=== PATIENT | male | born 1940 | race Caucasian/White ===

== ENCOUNTER 2017-09-20 23:44 | Emergency (ER) | payer MEDICARE, OTHER, SELFPAY | END 2017-09-21 03:23 | disposition still patient (30) | PROVIDERS: Emergency Provider Emergency Medicine; Visit Provider Emergency Medicine | DX: S72.001A Fracture of unspecified part of neck of right femur, initial encounter for closed fracture (principal); N39.0 Urinary tract infection, site not specified; M25.511 Pain in right shoulder; I10 Essential (primary) hypertension; Z86.79 Personal history of other diseases of the circulatory system; Y04.8XXA Assault by other bodily force, initial encounter | CPT/HCPCS: 71010; 73030; 73502; 80053; 81001; 85025; 87086; 87088; 87186; 93005; 93041; 96365; 96375; 99285 ==

== ENCOUNTER 2021-03-02 20:57 | Emergency (ER) | payer MEDICARE, OTHER, SELFPAY ==
[2021-03-02] VITALS (13 sets, daily range): BP systolic 122–141; BP diastolic 60–69; PULSE 71–87; RESP 17–20; TEMP 37.1; O2SAT 89–98; BMI 31.3; BMI 37.5
--- NOTE | 2021-03-02 21:12 | CT_ITS ---
PROCEDURE INFORMATION: Exam: CT Abdomen And Pelvis With Contrast Exam date and time: 03/02/2021 9:12 PM Age: 80 years old Clinical indication: Nausea and vomiting; Abdominal pain; Localized; Right upper quadrant (ruq); Patient HX: Ruq pain since this morning, with n/v; Additional info: Abd pain TECHNIQUE: Imaging protocol: Computed tomography of the abdomen and pelvis with contrast. Radiation optimization: All CT scans at this facility use at least one of these dose optimization techniques: automated exposure control; mA and/or kV adjustment per patient size (includes targeted exams where dose is matched to clinical indication); or iterative reconstruction. Contrast material: ISOVUE; Contrast volume: 75 ml; Contrast route: IV; COMPARISON: CR [id number] HIP RT 2-3V W/PELVIS IF PERFOR 09/21/2017 12:49 AM FINDINGS: Lungs: Mild bibasilar atelectasis or scarring. Liver: Normal. Gallbladder and bile ducts: Cholelithiasis, with enlarged gallbladder, minimal gallbladder wall thickening and mild pericholecystic fat stranding and fluid, compatible with acute cholecystitis. No biliary dilation. Pancreas: Normal. Spleen: Normal. Adrenal glands: Normal. No mass. Kidneys and ureters: Normal. Stomach and bowel: Mild gas and fluid distention of the stomach, without obstruction. Several loops of borderline dilated, gas and fluid-filled small bowel within the right lower quadrant, without definite focal transition to normal caliber small bowel identified. Appendix: Appendix normal. Intraperitoneal space: Unremarkable. No free air. No significant fluid collection. 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 Atherosclerotic disease of the abdominal aorta and iliac arteries. Lymph nodes: Unremarkable. No enlarged lymph nodes. Urinary bladder: Unremarkable as visualized. Reproductive: Unremarkable as visualized. Bones/joints: Right hip arthroplasty, without acute complications. Multilevel thoracolumbar spine degenerative disc disease. Soft tissues: Small fat containing left inguinal hernia, without acute complications. IMPRESSION: 1. Cholelithiasis, with enlarged gallbladder, minimal gallbladder wall thickening and mild pericholecystic fat stranding and fluid, compatible with acute cholecystitis. No biliary dilation. 2. Several loops of borderline dilated, gas and fluid-filled small bowel within the right lower quadrant, without definite focal transition to normal caliber small bowel identified. Findings may represent partial small bowel obstruction.
[2021-03-02 21:17] LABS: Basophils # 0.1 K/mm3 (0-0.2); Basophils % 0.2 % (0.1-2.0); Eosinophils # 0.2 K/mm3 (0.0-0.4); Eosinophils % 0.7 % (0.1-12.0); Hematocrit 42.5 % (42.0-52.0); Lymphocytes # 0.9 K/mm3 (0.7-4.5); Lymphocytes % 3.5 % (10-50); Mean Corpuscular HGB Conc 32.9 g/dL (31.8-35.4); Mean Corpuscular Hemoglobin 25.4 pg (27.0-31.2); Mean Corpuscular Volume 77.2 fl (80-94); Mean Platelet Volume 7.4 fl (7.4-10.4); Monocytes # 1.5 K/mm3 (0.1-1.0); Monocytes % 6.2 % (1.7-9.3); Neutrophils # 22.1 K/mm3 (1.8-7.8); Neutrophils % 89.4 % (37.0-80.0); Platelet Count 482 K/mm3 (142-424); Red Blood Count 5.51 M/mm3 (4.60-6.20); Red Cell Distribution Width 16.8 % (11.5-17.5); White Blood Count 24.7 K/mm3 (4.8-10.8)
[2021-03-02 21:21] LABS: Chloride 100 mmol/L (98-107); MANUAL DIFFERENTIAL MANUAL DIFFERENTIAL (MANUAL DIFF); Potassium 3.7 mmoL/L (3.5-5.1); Sodium 144 mmol/L (136-145)
[2021-03-02 21:23] LABS: Microscopic, Urine URINE MICROSCOPIC (MICROSCOPIC)
[2021-03-02 21:24] LABS: Alanine Aminotransferase 36 U/L (12-78); Albumin Level 4.5 g/dl (3.5-5.0); Albumin/Globulin Ratio 1.5 (1.1-1.8); Alkaline Phosphatase 117 U/L (38-126); Amylase 39 U/L (30-110); Anion Gap 15.7 mEq/L (5-15); Aspartate Amino Transferase 42 U/L (17-59); Bilirubin,Total 1.2 mg/dl (0.2-1.3); Blood Urea Nitrogen 22 mg/dl (9-20); Calcium 9.9 mg/dl (8.4-10.2); Carbon Dioxide 32 mmol/L (22.0-30.0); Creatinine Clearance Estimated 85 mL/min (50-200); Estimated Glomerular Filt Rate 65 ml/min (>60); GFR (African American) 78 ML/MIN (>60); Globulin 3.1 g/dL (1.3-3.2); Glucose 167 mg/dl (74-100); Lipase 16 U/L (23-300); Total Protein,Serum 7.6 g/dl (6.3-8.2)
[2021-03-02 21:24] LABS: Appearance,Urine CLEAR (Clear); Blood, Urine 3+ (Negative); Color,Urine YELLOW (Yellow); Glucose,Urine (UA) Negative (Negative); Ketones,Urine TRACE (Negative); Leukocyte Esterase,Urine TRACE (Negative); Nitrate,Urine POSITIVE (Negative); PH,Urine 6.5 (5.0-8.5); Protein,Urine 3+ (Negative); Specific Gravity, Urine >= 1.030 (1.005-1.030)
[2021-03-02 21:36] LABS: Barbiturates Screen,Urine Negative ng/ml (<200)
[2021-03-02 21:37] LABS: Benzodiazepines Screen,Urine Negative ng/ml (<200)
[2021-03-02 21:38] LABS: Troponin I 0.01 ng/ml (0.00-0.034)
[2021-03-02 21:38] LABS: Bilirubin,Urine Negative (Negative); Cocaine Screen,Urine Negative ng/ml (<300)
[2021-03-02 21:39] LABS: Methadone Screen,Urine Negative ng/ml (<300); Opiate Screen,Urine Negative ng/ml (<300); RBC,Urine 20-50 #/hpf (0-3)
[2021-03-02 21:40] LABS: Bacteria,Urine 3+ /lpf; Mucus,Urine 2+ /lpf; Phencyclidine Screen,Urine Negative ng/ml (<25)
[2021-03-02 21:45] LABS: Lymphocytes % 5 % (10-50); Microcytosis 1+; Monocytes % 8 % (2-9); Neutrophils % 86 % (42-76); Platelet Estimate Slight Increase; Spherocytes 2+; Total Cells Counted 100
[2021-03-02 21:45] LABS: Cannabinoid Screen,Urine Negative ng/ml (<50)
[2021-03-02 21:55] LABS: Lactic Acid 2.4 mmol/L (0.7-2.1)
[2021-03-02 21:55] LABS: C-Reactive Protein 204.2 mg/L (0-4); Thyroid Stimulating Hormone 3.59 uIU/mL (0.465-4.68)
[2021-03-02 21:59] LABS: Erythrocyte Sedimentation Rate 19 mm/hr (0-20)
--- NOTE | 2021-03-02 21:59 | [facility].EDNVD ---
ED Disposition Clinical Impression: Severe sepsis with acute organ dysfunction, Partial small bowel obstruction Cholecystitis with cholelithiasis Qualifiers: Cholelithiasis location: gallbladder Cholecystitis acuity: acute Biliary obstruction: without biliary obstruction Qualified Code(s): K80.00 - Calculus of gallbladder with acute cholecystitis without obstruction Disposition: Xfer Short-Term Hosp Condition on Discharge: Serious Referrals: Provider,Referral, [Primary Care Provider] - - Critical Care Critical Care Time: No Attestation: On 03/02/21, the high probability of a clinically significant, sudden or life threatening deterioration of the following system(s) required my full and direct attention, intervention and personal management. The time I documented below is in addition to time spent performing reported procedures but includes the following listed in this critical care notation. Medical Decision Making - Medical Records Medical records reviewed: Yes: I reviewed the patient's medical records. - Alen Inquiry Pt receiving controlled substance: No Vital Signs: 03/02/21 20:58 Temperature 98.8 F Temperature Source Oral Pulse Rate [Right] 87 Respiratory Rate 17 Blood Pressure [Right Arm] 122/69 Blood Pressure Mean [Right Arm] 86 Blood Pressure Source [Right Arm] Automatic Cuff 02 Sat by Pulse Oximetry 92 L Oxygen Delivery Method Room Air - Lab Data Lab results reviewed: Yes: I reviewed the patient's lab results. Lab Results 03/02/21 21:08: WBC 24.7 H*, RBC 5.51, Hgb 14.0 L, Hct 42.5, MCV 77.2 L, MCH 25.4 L, MCHC 32.9, RDW 16.8, Plt Count 482 H, MPV 7.4, Neut % (Auto) 89.4 H, Lymph % (Auto) 3.5 L, [place] % (Auto) 6.2, Eos % (Auto) 0.7, Baso % (Auto) 0.2, Neut # (Auto) 22.1 H, Lymph # (Auto) 0.9, [place] # (Auto) 1.5 H, Eos # (Auto) 0.2, Baso # (Auto) 0.1, Total Counted 100, Neutrophils % (Manual) 86 H, Lymphocytes % (Manual) 5 L, Atypical Lymphs % 1.0, Monocytes % (Manual) 8, Platelet Estimate Slight increase, Microcytosis 1+, Spherocytes 2+ 03/02/21 21:08: Sodium 144, Potassium 3.7, Chloride 100, Carbon Dioxide 32 H, Anion Gap 15.7 H, BUN 22 H, Creatinine 1.10, Estimated Creat Clear 85, Estimated GFR 65, Est GFR ( Amer) 78, Glucose 167 H, Calcium 9.9, Total Bilirubin 1.2, AST 42, ALT 36, Alkaline Phosphatase 117, Troponin I 0.01, Total Protein 7.6, Albumin 4.5, Globulin 3.1, Albumin/Globulin Ratio 1.5, Amylase 39, Lipase 16 L, TSH 3.59 03/02/21 21:08: ESR 19 03/02/21 21:08: C-Reactive Protein 204.2 H, Procalcitonin 0.722 03/02/21 21:15: Urine Color Yellow, Urine Appearance Clear, Urine pH 6.5, Ur Specific [place] >= 1.030, Urine Protein 3+, Urine Glucose (UA) Negative, Urine Ketones Trace, Urine Blood 3+, Urine Nitrate Positive, Urine Bilirubin Negative, Urine Urobilinogen 4.0, Ur Leukocyte Esterase Trace, Urine RBC 20-50, Urine WBC 10-20, Ur Squamous Epith Cells 10-20, Urine Bacteria 3+, Hyaline Casts 5-10, Urine Mucus 2+ 03/02/21 21:15: Urine Opiates Screen Negative, Urine Methadone Screen Negative, Ur Barbituates Screen Negative, Ur Phencyclidine Scrn Negative, Ur Amphetamines Screen Negative, U Benzodiazepines Scrn Negative, Urine Cocaine Screen Negative, U Marijuana (THC) Screen Negative 03/02/21 21:33: Lactate 2.4 H Result diagrams: 03/02/21 21:08 03/02/21 21:08 Orders (Tests/Meds): ED MEDICATIONS Generic Name Dose Route Start Last Admin Trade Name Freq PRN Reason Stop Dose Admin Sodium Chloride 1,000 mls @ 999 mls/hr 03/02/21 21:15 03/02/21 21:19 Sod Chlor 0.9% 1000ml Bag IV 03/02/21 22:15 999 mls/hr .Q1H1M ENDER Administration Sodium Chloride 1,000 mls @ 999 mls/hr 03/02/21 23:00 03/02/21 23:09 Sod Chlor 0.9% 1000ml Bag IV 03/03/21 00:00 999 mls/hr .Q1H1M ENDER Administration Sodium Chloride 8 ml 03/02/21 21:13 Sodium Chloride 0.9% 10ml Vial IV 04/01/21 21:12 NEEDED PRN dilute pepcid Discontinued Medications Generic Name Dose Route Start L
[2021-03-02 22:08] LABS: Procalcitonin 0.722 ng/mL (0.0-2.0)
[2021-03-02 22:08] LABS: Amphetamine/Metha Screen,Urine Negative ng/ml (<1000)
--- NOTE | 2021-03-02 22:54 | PC.NURSE ---
[facility] awaiting call back at this time.
--- NOTE | 2021-03-02 22:58 | ECG_ITS ---
APPROVED REPORT Exam: Resting ECG HR:74 bpm ECG Measurements Heart Rate 74 AXES GA 164 P 39 QRSd 102 QRS -41 QT 412 T 11 QTc 457 Conclusion Normal sinus rhythm Left axis deviation Abnormal ECG Electronically signed by : Osvaldo Lara, 03/04/2021 08:53:37
--- NOTE | 2021-03-02 23:02 | PC.NURSE ---
spoke with elham with [employer] [phone]
--- NOTE | 2021-03-02 23:11 | PC.NURSE ---
speaking to dr. nayak at the [facility] at this time.
[2021-03-02 23:21] LABS: Coronavirus 19 IgG Antibody Positive (Negative); Coronavirus 19 IgM Antibody Negative (Negative)
--- NOTE | 2021-03-02 23:36 | PC.NURSE ---
[facility] called with room [facility] at [facility] time. 3rd floor room 329 Report call back number [phone]
--- NOTE | 2021-03-02 23:50 | PC.NURSE ---
called annika for transport to the [facility].
[2021-03-03] VITALS (11 sets, daily range): BP systolic 118–146; BP diastolic 63–71; PULSE 68–78; RESP 15; TEMP 36.8; O2SAT 93–98
--- NOTE | 2021-03-03 00:03 | PC.NURSE ---
called report to Akanksha Lucas RN at [facility].
[2021-03-03 00:47] LABS: Troponin I 0.02 ng/ml (0.00-0.034)
== END 2021-03-03 02:27 | disposition short-term general hospital (02) ==
PROVIDERS: Emergency Provider Emergency Medicine
DX: K80.00 Calculus of gallbladder with acute cholecystitis without obstruction (principal); K56.600 Partial intestinal obstruction, unspecified as to cause; A41.9 Sepsis, unspecified organism; E07.9 Disorder of thyroid, unspecified; Z85.46 Personal history of malignant neoplasm of prostate; Z79.899 Other long term (current) drug therapy
CPT/HCPCS: 74177; 80053; 80305; 81001; 82150; 83605; 83690; 84145; 84443; 84484; 85007; 85025; 85651; 86140; 86328; 87040; 87086; 93005; 96365; 99284; J0692; J2405; Q9967